=== PATIENT | male | born 1960 | race Caucasian/White ===

== ENCOUNTER 2021-07-18 17:05 | Emergency (ER) | payer OTHER ==
[2021-07-18 17:28] VITALS: BP 140/86; PULSE 86; TEMP 98.8; BMI 34.9
[2021-07-18] MEDS ORDERED: ACETAMINOPHEN 500 MG TABLET (FP) PO ONE (17:31)
[2021-07-18] MEDS ORDERED: ACETAMINOPHEN 500 MG TABLET (FP) ONE (17:33)
[2021-07-18] MEDS ORDERED: COLCHICINE 0.6 MG TAB PO ONE (17:34)
[2021-07-18] MEDS ORDERED: COLCHICINE 0.6 MG CAPSULE ONE (17:35)
[2021-07-18 18:18] LABS: ALBUMIN 3.9 g/dl (3.4-5.0); BILIRUBIN,TOTAL 0.8 mg/dl (0.2-1); CALCIUM 9.7 mg/dl (8.5-10); CREATININE 0.8 mg/dl (0.55-1.3); TOT PROT 6.8 g/dl (6.4-8.2)
== END 2021-07-18 19:11 | disposition home or self-care (01) ==
LOC: FER 17:05
DX: M10.9 Gout, unspecified (principal)
CPT/HCPCS: 36415; 73610-TC-LT-FY; 73630-TC-LT; 80053; 99284-25

== ENCOUNTER 2022-06-08 14:59 | Emergency (ER) | payer OTHER ==
[2022-06-08 15:26] VITALS: BP 155/93; PULSE 90; RESP 18; TEMP 98.4; BMI 30.7
[2022-06-08 16:09] LABS: HEMATOCRIT 47.4 % (35.4-49); HEMOGLOBIN 15.7 G/dL (11.7-16.9); MCH 28.3 pg (25.7-33.7); MCHC 33.2 g/dl (32.0-35.9); MEAN CELL VOLUME 85.1 fl (80-96); MEAN PLT VOLUME 8.3 fl (7.5-11.1); PLATELET COUNT 269.4 10^3/uL (134-434); RBC 5.57 10^6/uL (4.00-5.60); WHITE BLOOD COUNT 8.8 10^3/uL (4.0-10.8)
[2022-06-08 16:25] LABS: BILIRUBIN,TOTAL 0.3 mg/dl (0.2-1); CALCIUM 9.5 mg/dl (8.5-10); CREATININE 0.8 mg/dl (0.55-1.3)
[2022-06-08 17:45] LABS: PLATELET ESTIMATE ADEQUATE
== END 2022-06-08 17:30 | disposition home or self-care (01) ==
LOC: FER 14:59
DX: R22.41 Localized swelling, mass and lump, right lower limb (principal)
CPT/HCPCS: 36415; 80053; 85027; 93971-TC; 99284-25